=== PATIENT | male | born 1950 | race Caucasian/White ===

== ENCOUNTER 2018-03-05 21:03 | Emergency (ER) | payer BC ==
[~2018-03-05] VITALS: Ht 170.2 cm; Wt 61.2 kg
[~2018-03-05 21:03] MED LIST: UNOBMED
[2018-03-05] MEDS ORDERED: CRESTOR20 MG ORAL (21:20)
[2018-03-05] MEDS ORDERED: DESCOVY 200-251 EACH PO (21:27)
[2018-03-05] MEDS ORDERED: BONE DENSITY C1 EACH PO (21:27)
[2018-03-05] MEDS ORDERED: MARINOL5 MG ORAL (21:27)
[2018-03-05] MEDS ORDERED: ISENTRESS100 MG ORAL (21:27)
[2018-03-05] MEDS ORDERED: MELOXICAM15 MG PO (21:27)
[2018-03-05] MEDS ORDERED: ESCITALOPRAM OX10 MG ORAL (21:27)
[2018-03-05 21:45] VITALS: BP 145/77
[2018-03-05] MEDS ORDERED: Norco 5mg/325mg tab PO ONE (22:00)
[2018-03-05] MEDS ORDERED: IBUPROFEN600 MG ORAL (22:23)
[2018-03-05] MEDS ORDERED: PRIMIDONE250 MG ORAL (22:27)
[2018-03-05] MEDS ORDERED: FENTANYL1 EACH TDERMAL (22:27)
[2018-03-05] MEDS ORDERED: KADIAN30 MG PO (22:27)
[2018-03-05] MEDS ORDERED: ASPIR 8181 MG ORAL (22:27)
[2018-03-05] MEDS ORDERED: ACYCLOVIR400 MG ORAL (22:27)
--- NOTE | 2018-03-05 23:58 | Emergency Room Report ---
History of Present Illness General Chief Complaint: Multiple Trauma/Fall Source: Patient Present Illness HPI 67-year-old male presents ED for evaluation. States that a few hours ago while walking up the stairs he tripped and fell landing on his left wrist. Presents with pain and swelling to his left wrist. Throbbing, 9 out of 10, nonradiating. Denies any other injuries. No other aggravating relieving factors. Denies any other associated symptoms Allergies: Coded Allergies: No Known Allergies (Unverified , 08/11/14) Patient History Past Medical History: psych hx Past Surgical History: none Pertinent Family History: none Social History: Denies: smoking, alcohol use, drug use Immunizations: UTD Reviewed Nursing Documentation: PMH: Agreed; PSxH: Agreed Nursing Documentation-PMH History Of Psychiatric Problem: Yes - Depression Review of Systems All Other Systems: negative except mentioned in HPI Physical Exam Vital Signs Date Time Temp Pulse Resp B/P (MAP) Pulse Ox O2 Delivery O2 Flow Rate FiO2 03/05/18 21:14 99.0 84 14 145/77 97 Room Air 99.0 Sp02 EP Interpretation: reviewed, normal General Appearance: no apparent distress, alert, GCS 15, non-toxic Head: normocephalic Eyes: bilateral eye normal inspection, bilateral eye PERRL ENT: normal ENT inspection Neck: normal inspection Respiratory: normal inspection Cardiovascular #1: normal inspection Gastrointestinal: normal inspection Rectal: deferred Genitourinary: no CVA tenderness Musculoskeletal: swelling - L wrist Neurologic: alert, oriented x3, responsive, motor strength/tone normal, sensory intact, speech normal Psychiatric: normal inspection Skin: normal inspection Lymphatic: normal inspection Procedures Splinting Splinting : Consent: Verbal Pre-Made Type: velcro Splint: volar Pre-Proc Neuro Vasc Exam: normal Post-Proc Neuro Vasc Exam: normal Patient Tolerated: Well Complications: None Medical Decision Making Diagnostic Impression: Primary Impression: Wrist fracture Qualified Codes: S62.102A - Fracture of unspecified carpal bone, left wrist, initial encounter for closed fracture ER Course Hospital Course 67-year-old M presents to ED complaining of L wrist pain s/p fall Differential diagnoses include: Fracture, dislocation, sprain, contusion Clinical course Patient placed on stretcher. After initial history and physical, I ordered pain medications and Xrays of L hand, wrist Xrays prelim read shows distal radius fx. placed in volar splint Discussed findings with patient. Treatment likely nonoperative however recommend close follow-up with orthopedics. Given orthopedic referral Diagnosis - wrist fracture Stable and discharged to home with prescription for Motrin. apply ice, keep elevated. Followup with PMD. Return to ED if symptoms recur or worsen Other X-Ray Diagnostic Results Other X-Ray Diagnostic Results #1: X-Ray ordered: L hand # of Views/Limited Vs Complete: 3 View Indication: Pain EP Interpretation: Yes Interpretation: no dislocation, no soft tissue swelling, no fractures Impression: No acute disease Electronically Signed by: Electronically signed by Av Muñiz MD Other X-Ray Diagnostic Results #2: X-Ray ordered: L wrist # of Views/Limited Vs Complete: 3 View Indication: Pain EP Interpretation: Yes Interpretation: no dislocation, other - L distal radius fx nondisplaced Impression: Other - fx Electronically Signed by: Electronically signed by Av Muñiz MD Last Vital Signs Date Time Temp Pulse Resp B/P (MAP) Pulse Ox O2 Delivery O2 Flow Rate FiO2 03/05/18 22:25 99.0 84 14 145/77 97 Room Air Status: improved Disposition: HOME, SELF-CARE Condition: Stable Scripts Ibuprofen* (MOTRIN*) 600 Mg Tablet 600 MG ORAL Q8H PRN for For Pain, #30 TAB 0 Refills Prov: Av Muñiz MD 03/05/18 Referrals: BRAD DUMONT Patient Instructions: Wrist Fracture, [id number] Av Muñiz MD Mar 05, 2018 23:58
--- NOTE | 2018-03-06 10:01 | Diagnostic Imaging Report ---
Clinical Indication:Pain, status post fall Technique: 3 views of the left wrist Comparison: None Findings: There is a comminuted slightly angulated slightly impacted fracture of the distal radius. This does not appear to involve the articular surface. There is an old ununited ulnar styloid fracture. Bones are osteoporotic. No carpal fracture. Impression: Positive for distal radial fracture This agrees with the emergency room physician interpretation reported in the electronic medical record
--- NOTE | 2018-03-06 10:03 | Diagnostic Imaging Report ---
Indication: Pain, status post fall Technique: 3 views left hand Comparison: none Findings: There is no acute fracture of the distal radius, also described on wrist radiograph report. Old ununited ulnar styloid fracture is likewise noted. No other acute fractures. No dislocations. Small erosions are seen at the bases of the fourth and fifth proximal phalanges. 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
== END 2018-03-05 23:00 | disposition home or self-care (01) ==
LOC: EMR 22:52
DX: S52.502A Unspecified fracture of the lower end of left radius, initial encounter for closed fracture (principal); W01.0XXA Fall on same level from slipping, tripping and stumbling without subsequent striking against object, initial encounter; Y92.008 Other place in unspecified non-institutional (private) residence as the place of occurrence of the external cause; F32.9 Major depressive disorder, single episode, unspecified
CPT/HCPCS: 99284

== ENCOUNTER 2018-03-24 08:42 | Day surgery (SDC) | payer BC, MEDICARE ==
[2018-03-24] VITALS (12 sets, daily range): BP systolic 121–154; BP diastolic 62–88
[~2018-03-24] VITALS: Ht 167.6 cm; Wt 61.2 kg
--- NOTE | 2018-03-24 07:06 | Pre-Procedure Note/Attestation ---
Pre-Procedure Note/Attestation Complete Prior to Procedure Planned Procedure: left Procedure Narrative: left wrist ORIF Indications for Procedure Pre-Operative Diagnosis: left wrist fracture Attestation I attest that I discussed the nature of the procedure; its benefits; risks and complications; and alternatives (and the risks and benefits of such alternatives ), prior to the procedure, with the patient (or the patient's legal investment representative). I attest that, if there was a reasonable possibility of needing a blood transfusion, the patient (or the patient's legal investment representative) was given the [facility] standardized written summary, pursuant to the Fabricio Nathan Blood Safety Act ([place] Health and Safety Code # 1645, as amended). I attest that I re-evaluated the patient just prior to the surgery and that there has been no change in the patient's H&P, except as documented below: none BRAD DUMONT March 24, 2018 07:06
[~2018-03-24 08:42] MED LIST changes: +ACYCLOVIR400 MG ORAL; +ASPIR 8181 MG ORAL; +BONE DENSITY C1 EACH PO; +BONIVA150 MG ORAL; +CALCIUM MAGNES1 EAC2 PO; +CRESTOR20 MG ORAL; +DESCOVY 200-251 EACH PO; +ESCITALOPRAM OX10 MG ORAL; +FENTANYL1 EACH TDERMAL; +IBUPROFEN600 MG ORAL; +ISENTRESS100 MG ORAL; +KADIAN30 MG PO; +MARINOL5 MG ORAL; +MELOXICAM15 MG PO; +PRIMIDONE250 MG ORAL; +VITAMIN D1000 UNI1 ORAL; +ceFAZolin sod 1 GM in D5W 55 ML IVPB ONE; +celeBREX 200mg Cap **SURGERY PATIENTS ONLY ORAL ONE; +oxyCONTIN 20mg tab ORAL ONE
[2018-03-24] MEDS ORDERED: Midazolam 2mg/2ml Inj ONE (09:19)
[2018-03-24] MEDS ORDERED: Ropivacaine 5mg/ml Vial 30ml INJ ONE ×2 (09:19→09:31)
[2018-03-24] MEDS ORDERED: Propofol 200mg/20ml IV ONE (09:19)
[2018-03-24] MEDS ORDERED: fentaNYL 100 mcg/2 mL IV ONE (09:19)
[2018-03-24] MEDS ORDERED: Lidocaine 1% MPF 10mg/ml 5ml ONE (09:19)
[2018-03-24] MEDS ORDERED: EPINEPHrine 1mg/1ml Amp ONE (09:30)
[2018-03-24] MEDS ORDERED: oxyCONTIN 20mg tab ORAL ONE (09:30)
[2018-03-24] MEDS ORDERED: Bupivacaine 0.5% Inj 30 ml vial INJ ONE (09:30)
[2018-03-24] MEDS ORDERED: Bacitracin 50000 Units Vial ONE (09:31)
[2018-03-24] MEDS ORDERED: celeBREX 200mg Cap **SURGERY PATIENTS ONLY ORAL ONE (09:31)
[2018-03-24] MEDS ORDERED: Sodium Chloride 10ml vial INJ ONE (09:41)
[2018-03-24] MEDS ORDERED: LR 1000ml ONE (10:00)
[2018-03-24] MEDS ORDERED: Tylenol #3 tab (300mg/30mg) ORAL PRN (10:00)
[2018-03-24] MEDS ORDERED: Sterile Water Irrig 1000ml IRRIG ONE (10:00)
[2018-03-24] MEDS ORDERED: D5 1/2NS 1,000 ML IV SCH (10:00)
[2018-03-24] MEDS ORDERED: Norco 5mg/325mg tab ORAL PRN (10:00)
[2018-03-24] MEDS ORDERED: LR 1000ml 1,000 ML IVLG SCH (10:53)
--- NOTE | 2018-03-24 10:53 | Anethesia Preoperative Eval ---
Anesthesia Pre-op PMH/ROS General Date of Evaluation: March 24, 2018 Time of Evaluation: 09:50 Anesthesiologist: Raciel ASA Score: ASA 3 Mallampati Score Class I : Soft palate, uvula, fauces, pillars visible Class II: Soft palate, uvula, fauces visible Class III: Soft palate, base of uvula visible Class IV: Only hard plate visible Mallampati Classification: Class II Surgeon: Marlon Diagnosis: L distal radius Fx Surgical Procedure: ORIF of L distal radius Fx Anesthesia History: none Social History: smoking - h/o Family History: no anesthesia problems Allergies: Coded Allergies: No Known Allergies (Unverified , 08/11/14) Medications: see eMAR Past Medical History Cardiovascular: Denies: HTN, CAD, PR, valve dz, arrhythmia, other Pulmonary: Denies: asthma, COPD, WILL, other Gastrointestinal/Genitourinary: Reports: GERD Neurologic/Psychiatric: Reports: depression/anxiety, other - chronic pain Endocrine: Reports: hypothyroidism; Denies: DM, steroids, other HEENT: Denies: cataract (L), cataract (R), glaucoma, CREEK (L), CREEK (R), other Hematology/Immune: Reports: anemia - mild, other - HIV AIDS; Denies: DVT, bleeding disorder Musculoskeletal/Integumentary: Denies: OA, RA, DJD, DDD, edema, other Other: other - malnourished PMH Narrative: as above PSxH Narrative: see H&P Anesthesia Pre-op Phys. Exam Physician Exam Last Vital Signs Date Time Temp Pulse Resp B/P (MAP) Pulse Ox O2 Delivery O2 Flow Rate FiO2 03/24/18 09:35 98.1 88 20 154/83 98 Room Air 98.1 Constitutional: NAD Neurologic: CN 2-12 intact Cardiovascular: RRR, no M/R/G Respiratory: CTA Gastrointestinal: S/NT/ND Airway Exam Mallampati Score: Class II MO: limited Neck: stiff ROM: limited Teeth: missing Dentures: no upper, no lower Anesthesia Pre-op A/P Labs see chart Risk Assessment & Plan Assessment: ASA 3 Plan: GA with LMA L brachial plexus block for p/op pain control Status Change Before Surgery: No Pre-Antibiotics Drug: Ancef 1 gr. Given Within 1 Hr of Incision: Yes Time Given: 10:32 DERREK CHILDS M.D. March 24, 2018 10:53
[2018-03-24] MEDS ORDERED: Ketorolac 30mg Inj ONE (10:59)
[2018-03-24] MEDS ORDERED: Meperidine 50mg/ml Inj(FOR RIGORS ONLY) IV PRN ×2 (11:00)
[2018-03-24] MEDS ORDERED: Midazolam 2mg/2ml Inj IVP PRN (11:00)
[2018-03-24] MEDS ORDERED: DiphenhydrAMINE 50mg/ml Inj IVP PRN (11:00)
--- NOTE | 2018-03-24 11:39 | Brief Operative Note ---
Immediate Post Operative Note Operative Note Chief Complaint: left wrist fracture Pre-op Diagnosis: left wrist distal radius fracture Procedure: left wrist ORIF Post-op Diagnosis: same as pre-op Findings: consistent w/pre-op dx studies Surgeon: md anita Confectionery Maker: tayla yu Anesthesiologist: md cindy Anesthesia: general Specimen: none Complications: none Condition: stable Fluids: ns Estimated Blood Loss: minimal Drains: none Implant(s) used?: Yes - AWA Oropeza March 24, 2018 11:39
--- NOTE | 2018-03-24 11:51 | Immediate Post-Op Evaluation ---
Immediate Post-Op Evalulation Immediate Post-Op Evalulation Procedure: ORIF L distal radius Fx Date of Evaluation: March 24, 2018 Time of Evaluation: 11:50 IV Fluids: 750 Blood Products: none Estimated Blood Loss: min Urinary Output: none Blood Pressure Systolic: 126 Blood Pressure Diastolic: 78 Pulse Rate: 73 Respiratory Rate: 20 O2 Sat by Pulse Oximetry: 99 Temperature (Fahrenheit): 98.5 Pain Score (1-10): 1 Nausea: No Vomiting: No Complications none Patient Status: reacts, patent, none Hydration Status: adequate DERREK CHILDS M.D. March 24, 2018 11:51
[2018-03-24] MEDS ORDERED: NS Irrig 1000ml IRRIG ONE (11:59)
--- NOTE | 2018-03-24 13:49 | Diagnostic Imaging Report ---
Indication: Pain left wrist pain Findings: Fluoroscopic views of the left wrist were obtained. 2 views of the wrist showing a T plate compression plate and fixation screws reducing a distal radius fracture. The fracture itself is not well imaged on the fluoroscopic images obtained. IMPRESSION: Intraoperative imaging
--- NOTE | 2018-03-24 16:45 | Operative Note - Dictated ---
DATE OF OPERATION: 03/24/2018 PREOPERATIVE DIAGNOSIS: Left distal radius fracture with dorsal angulation, and shortening. POSTOPERATIVE DIAGNOSIS: Left distal radius fracture with dorsal angulation, and shortening. PROCEDURE: Left wrist open reduction and internal fixation using [place] volar plating. SURGEON: Jose Mason M.D. AUTO BODY SHOP MANAGER: Alis Perez PA-C. ANESTHESIOLOGIST: Dr. Schrader. ANESTHESIA: LMA anesthesia. ESTIMATED BLOOD LOSS: Less than 20 mL. COMPLICATIONS: None. BRIEF HISTORY: The patient is a pleasant 67-year-old gentleman who sustained a distal radius fracture. He was initially evaluated and the fracture was relatively nondisplaced. There was dorsal comminution, however. He was initially in a splint and subsequently was placed in a cast. Serial x-rays on followup showed that the fracture started to go more and more into dorsal angulation. This was not an acceptable position. After full discussion of risks and benefits of surgery and complications associated including infection, bleeding, neurovascular complication, possible malunion, possible nonunion, possible need for further surgery, possibility of need for other treatment as necessary, and stiffness and need for hardware removal down the line, he opted for surgical treatment as described above. OPERATIVE PROCEDURE: The patient was brought to the operating table and was placed supine. All pressure points were well padded. General LMA anesthesia was induced. Local axillary block was performed by anesthesiologist for postoperative pain management prior to the LMA anesthesia. The left arm was prepped and draped in usual sterile fashion and preoperative antibiotics were given. Time-out was performed. The left arm was exsanguinated and tourniquet was inflated to 275 mmHg. Standard volar approach to the wrist was undertaken. The incision was taken through the subcutaneous tissue. The flexor carpi radialis was identified and the internal wrist interval was identified. The pronator quadratus was identified and was dissected off the distal radius. A step-off and dorsal angulation was then identified. The fracture was in the process of consolidation. Using [place] elevator, the fracture was mobilized. Appropriate retractors were placed in. At this point, using short [place] volar plate, the distal fixation was obtained and this was checked in AP and lateral on the image intensifier. Once the position of the plate was in good position, 4 distal screws including a styloid screw were placed in. At this point, using the plate, the fracture was then reduced and the volar tilt was recreated and a bicortical screw was placed in the oblong hole proximal to the fracture site. This brought the plate back down onto the shaft and recreated the volar tilt. The dorsal angulation was what was corrected. The radial inclination was good and the length was good. At this point, 1 proximal locking screw and then second distal bicortical screw were then placed in. Total of 4 distal locking screws and 1 proximal locking screw was used in addition to 2 proximal bicortical screws. Once this was completed, screw lengths were checked and appeared to be perfect. Wounds were thoroughly irrigated. Final images were obtained and the fracture reduction was anatomical and the length was recreated. Inclination was recreated. At this point, wounds were thoroughly irrigated and subcutaneous tissue was closed using 2-0 Vicryl suture. Skin was closed using 3-0 Monocryl suture. Steri-Strips and sterile dressing was applied. The patient tolerated the procedure well without any complications and taken to recovery room in stable condition. Jose Mason M.D. DR: Lisa JOB#: [id number] CC: SHAUNA
[2018-03-25 09:06] VITALS: BP 128/62
--- NOTE | 2018-03-25 09:06 | 48 Hour Post Anesthesia Eval ---
Post Anesthesia Evaluation Procedure: ORIF L distal radius Fx Date of Evaluation: March 24, 2018 Time of Evaluation: 16:12 Blood Pressure Systolic: 128 0: 62 Pulse Rate: 74 Respiratory Rate: 20 Temperature (Fahrenheit): 97.6 O2 Sat by Pulse Oximetry: 98 Airway: patent Nausea: No Vomiting: No Pain Intensity: 2 Hydration Status: adequate Cardiopulmonary Status: stable Mental Status/LOC: patient returned to baseline Follow-up Care/Observations: n/a Post-Anesthesia Complications: none Follow-up care needed: ready to discharge DERREK CHILDS M.D. March 25, 2018 09:06
== END 2018-03-24 13:30 | disposition home or self-care (01) ==
LOC: SUR 08:42
DX: S52.502A Unspecified fracture of the lower end of left radius, initial encounter for closed fracture (principal); K21.9 Gastro-esophageal reflux disease without esophagitis; F32.9 Major depressive disorder, single episode, unspecified; F41.9 Anxiety disorder, unspecified; E03.9 Hypothyroidism, unspecified; Z87.891 Personal history of nicotine dependence; X58.XXXA Exposure to other specified factors, initial encounter; Y93.9 Activity, unspecified; Y92.9 Unspecified place or not applicable
CPT/HCPCS: 25607; 71046; 73100; 76000; C1713; J0690; J1885; J2250; J2704; J2795; J3010; J7120; 94003; 94150